=== PATIENT | female | born 1990 | race Caucasian/White ===

== ENCOUNTER 2018-11-21 18:29 | Emergency (ER) | payer SELFPAY ==
[~2018-11-21] VITALS: Ht 152.4 cm; Wt 59.1 kg
[2018-11-21 18:48] VITALS: BP 130/76
== END 2018-11-21 19:00 | disposition left against medical advice (07) ==
LOC: EMS 18:31
DX: F41.9 Anxiety disorder, unspecified (principal); Z53.21 Procedure and treatment not carried out due to patient leaving prior to being seen by health care provider

== ENCOUNTER 2020-03-08 14:56 | Emergency (ER) | payer MEDICAID ==
[~2020-03-08] VITALS: Ht 153 cm; Wt 64.0 kg
[2020-03-08 16:36] LABS: BASOPHILS % (AUTO) 0.6 % (0.0-2.0); EOSINOPHILS % (AUTO) 0.8 % (1.0-6.0); HEMATOCRIT 40.3 % (36-46); LYMPHOCYTES # (AUTO) 1.8 K/uL (1.0-4.8); MEAN CORPUSCULAR HGB CONC 34.7 G/dL (31.0-37.0); MEAN CORPUSCULAR VOLUME 89 fL (80-100); MONOCYTES # (AUTO) 0.5 K/uL (0.1-1.0); MONOCYTES % (AUTO) 7.4 % (2.0-9.0); NEUTROPHILS # (AUTO) 4.7 K/uL (1.8-7.7); NEUTROPHILS % (AUTO) 66.2 % (40.0-70.0); PLATELET COUNT (AUTO) 231 K/uL (150-450); RED BLOOD CELL COUNT(AUTO) 4.51 MIL/uL (4.00-5.20); RED CELL DISTRIBUTION WIDTH 13.8 % (11.5-14.5)
[2020-03-08 16:58] LABS: ANION GAP 7 mmol/L (8-16); CALCIUM, TOTAL 9.4 mg/dL (8.8-10.5); CARBON DIOXIDE 30 mmol/L (22-29); CHLORIDE 100 mmol/L (98-107); CREATININE 0.64 mg/dL (0.60-1.30); GLOMERULAR FILTR. RATE CALC > 60 mL/min (>60); GLUCOSE,RANDOM 98 mg/dL (70-110); POTASSIUM 3.8 mmol/L (3.5-5.1); SODIUM SERUM 137 mmol/L (136-145); UREA NITROGEN, BLOOD 7 mg/dL (7-18)
[2020-03-08 17:15] VITALS: BP 106/73
== END 2020-03-08 17:50 | disposition home or self-care (01) ==
LOC: EMS 15:53
DX: R07.89 Other chest pain (principal); R06.02 Shortness of breath; F41.9 Anxiety disorder, unspecified; E78.00 Pure hypercholesterolemia, unspecified
CPT/HCPCS: 93005; 36415-L1; 36415-TC; 71045-TC

== ENCOUNTER 2023-07-02 09:41 | Emergency (ER) | payer MEDICAID, OTHER ==
[~2023-07-02] VITALS: Ht 162.6 cm; Wt 63.6 kg
[2023-07-02 09:45] VITALS: TEMP 97.8
[2023-07-02] MEDS ORDERED: TraMADol HCL 50 MG TABLET PO ONE (10:30)
[2023-07-02 10:45] VITALS: BP 110/65; PULSE 76; RESP 12
== END 2023-07-02 14:32 | disposition home or self-care (01) ==
LOC: EMS 09:48
DX: S93.402A Sprain of unspecified ligament of left ankle, initial encounter (principal); F41.9 Anxiety disorder, unspecified; E78.00 Pure hypercholesterolemia, unspecified; W19.XXXA Unspecified fall, initial encounter; Y93.89 Activity, other specified; Y92.89 Other specified places as the place of occurrence of the external cause; Y99.8 Other external cause status
CPT/HCPCS: 99283

== ENCOUNTER 2023-12-18 03:26 | Inpatient (IN) | payer MEDICAID ==
[~2023-12-18] VITALS: Ht 152.4 cm; Wt 73.9 kg
[2023-12-18] MEDS ORDERED: HALOPERIDOL 5 MG TABLET PO PRN (04:45)
[2023-12-18 05:00] VITALS: BP 122/68; PULSE 74; RESP 18; TEMP 98.1; O2SAT 99
[2023-12-18] MEDS ORDERED: PETROLATUM,WHITE 28 GM JELLY TP PRN (13:45)
[2023-12-18] MEDS ORDERED: ALBUTEROL SULFATE HFA 90 MCG/PUFF 8 GM INHALER IH PRN (13:45)
[2023-12-18] MEDS ORDERED: DOCUSATE SODIUM 100 MG CAPSULE PO PRN (13:45)
[2023-12-18] MEDS ORDERED: LOPERAMIDE HCL 2 MG CAPSULE PO PRN (13:45)
[2023-12-18] MEDS ORDERED: CloNIDine HCL 0.1 MG TABLET PO PRN (13:45)
[2023-12-18] MEDS ORDERED: MAG HYDROX/ALUMINUM HYD/SIMETH ES 30 ML SUSPENSION UDCUP PO PRN (13:45)
[2023-12-18] MEDS ORDERED: IBUPROFEN 600 MG TABLET PO PRN (13:45)
[2023-12-18] MEDS ORDERED: BENZOCAINE/MENTHOL LOZENGE PO PRN (13:45)
[2023-12-18] MEDS ORDERED: OMEPRAZOLE 20 MG CAPSULE PO PRN (13:45)
[2023-12-18] MEDS ORDERED: BACITRACIN 28 GM OINTMENT TP PRN (13:45)
[2023-12-18] MEDS ORDERED: MAGNESIUM HYDROXIDE SUSPENSION 30 ML UDCUP PO PRN (13:45)
[2023-12-18] MEDS: ACETAMINOPHEN 325 MG TABLET PO PRN (20:33)
[2023-12-18 21:23] VITALS: BP 135/82; PULSE 77; RESP 18; TEMP 97.9; O2SAT 98
[2023-12-18] MEDS: ZOLPIDEM TARTRATE 10 MG TABLET PO PRN (22:52)
[2023-12-19 07:44] LABS: BASOPHILS % (AUTO) 0.7 % (0.0-2.0); EOSINOPHILS % (AUTO) 1.8 % (1.0-6.0); HEMATOCRIT 42.4 % (36-46); HEMOGLOBIN 13.8 g/dL (12.0-16.0); LYMPHOCYTES # (AUTO) 1.7 K/uL (1.0-4.8); LYMPHOCYTES % (AUTO) 29.5 % (22.0-44.0); MEAN CORPUSCULAR HEMOGLOBIN 30.3 pg (26.0-34.0); MEAN CORPUSCULAR HGB CONC 32.6 G/dL (31.0-37.0); MEAN CORPUSCULAR VOLUME 93 fL (80-100); MONOCYTES # (AUTO) 0.5 K/uL (0.1-1.0); MONOCYTES % (AUTO) 8.3 % (2.0-9.0); NEUTROPHILS # (AUTO) 3.5 K/uL (1.8-7.7); NEUTROPHILS % (AUTO) 59.7 % (40.0-70.0); PLATELET COUNT (AUTO) 241 K/uL (150-450); RED BLOOD CELL COUNT(AUTO) 4.57 MIL/uL (4.00-5.20); RED CELL DISTRIBUTION WIDTH 14.4 % (11.5-14.5); WHITE BLOOD COUNT (AUTO) 5.9 K/uL (4.5-11.0)
[2023-12-19 07:52] LABS: HEMOGLOBIN A1C 5.7 % (3.8-5.6)
[2023-12-19 08:13] LABS: ALANINE AMINOTRANSFERASE 13 U/L (12-78); ALBUMIN 3.4 g/dL (3.4-5.0); ALKALINE PHOSPHATASE 52 U/L (46-116); ANION GAP 6 mmol/L (8-16); ASPARTATE AMINOTRANSFERASE 13 U/L (15-37); BILIRUBIN,TOTAL 0.4 mg/dL (0.1-1.0); CALCIUM, TOTAL 8.5 mg/dL (8.8-10.5); CARBON DIOXIDE 32 mmol/L (22-29); CHLORIDE 103 mmol/L (98-107); CHOL/HDL RATIO 3.3 (3.9-5.7); CHOLESTEROL 196 mg/dL (131-200); CREATININE 0.57 mg/dL (0.60-1.30); GLOMERULAR FILTR. RATE CALC > 60 mL/min (>60); GLUCOSE,RANDOM 92 mg/dL (70-110); HCG,QUANTITATIVE < 1 mIU/mL (0-6); HDL CHOLESTEROL 60 mg/dL (40-60); LDL CHOL (CALC.) 116 mg/dL (0-130); POTASSIUM 4.1 mmol/L (3.5-5.1); SODIUM SERUM 141 mmol/L (136-145); T4 (THYROXINE) 8.5 mcg/dL (4.7-13.3); THYROID STIMULATING HORMONE 1.24 uIU/mL (0.36-3.74); TRIGLYCERIDES 101 mg/dL (15-150); UREA NITROGEN, BLOOD 10 mg/dL (7-18)
[2023-12-19 09:47] VITALS: BP 120/70; PULSE 80; RESP 18; TEMP 98.3; O2SAT 100
[2023-12-19 20:15] VITALS: BP 151/91; PULSE 77; TEMP 98.2; O2SAT 100
[2023-12-19] MEDS: LORazepam 2 MG TABLET PO PRN (23:42)
[2023-12-20] MEDS: ONDANSETRON HCL 4 MG TABLET PO PRN (04:50)
[2023-12-20] MEDS: DIVALPROEX SODIUM 500 MG DR TABLET PO SCH (08:19)
[2023-12-20 09:05] VITALS: BP 119/79; PULSE 91; RESP 17; TEMP 98.4; O2SAT 98
[2023-12-20 12:12] VITALS: RESP 17
[2023-12-20 13:12] VITALS: RESP 18
[2023-12-21 08:32] VITALS: BP 105/71; PULSE 68; RESP 17; TEMP 97.8; O2SAT 98
[2023-12-21 09:19] VITALS: RESP 17
[2023-12-21 10:19] VITALS: RESP 17
[2023-12-21 20:01] VITALS: BP 110/68; PULSE 62; RESP 18; TEMP 98
[2023-12-22 08:54] VITALS: BP 112/74; PULSE 74; RESP 17; TEMP 98.1; O2SAT 98
[2023-12-22] MEDS ORDERED: DIVA-112 PO (09:47)
[2023-12-22 12:28] VITALS: BP 132/85; PULSE 87; RESP 17; TEMP 98.3; O2SAT 98
== END 2023-12-22 13:30 | disposition home or self-care (01) | DRG 753 ==
LOC: B2S 04:44
PROVIDERS: ADMIT Psychiatry & Neurology Psychiatry; ATTEND Psychiatry & Neurology Psychiatry
DX: F31.9 Bipolar disorder, unspecified (principal); R45.851 Suicidal ideations; F41.9 Anxiety disorder, unspecified; G47.00 Insomnia, unspecified; K59.00 Constipation, unspecified
CPT/HCPCS: 80053; 80061; 80164; 83036; 84436; 84439; 84443; 84702; 85025; 86592; Q0162

== ENCOUNTER 2024-01-25 14:26 | Emergency (ER) | payer MEDICAID, OTHER ==
[~2024-01-25] VITALS: Ht 152.4 cm; Wt 72.7 kg
[~2024-01-25 14:26] MED LIST: DIVA-112 PO
[2024-01-25 14:31] VITALS: BP 115/66; PULSE 78; RESP 14; TEMP 98.2
[2024-01-25] MEDS ORDERED: ESCI-8 PO (14:32)
[2024-01-25] MEDS ORDERED: LITH300C3 PO (14:32)
[2024-01-25 14:47] LABS: COVID AG,FIA SOURCE NASAL SWAB
[2024-01-25 15:46] LABS: SARS-COV2 (COVID) ANTIGEN,FIA Negative (Negative)
[2024-01-25 15:54] LABS: INFLUENZA TYPE A NEGATIVE FOR TYPE A (NEGATIVE); INFLUENZA TYPE B NEGATIVE FOR TYPE B (NEGATIVE)
[2024-01-25 15:59] LABS: RAPID GROUP A STREP NEGATIVE (NEGATIVE)
[2024-01-25] MEDS ORDERED: AMOX250C4 PO (16:10)
== END 2024-01-25 16:41 | disposition home or self-care (01) ==
LOC: EMS 14:26
DX: J02.8 Acute pharyngitis due to other specified organisms (principal); R50.9 Fever, unspecified; R09.89 Other specified symptoms and signs involving the circulatory and respiratory systems; Z20.822 Contact with and (suspected) exposure to COVID-19
CPT/HCPCS: 87430; 87804; 99283

== ENCOUNTER 2024-03-12 00:04 | Emergency (ER) | payer OTHER ==
[~2024-03-12] VITALS: Ht 152.4 cm; Wt 70.9 kg
[~2024-03-12 00:04] MED LIST changes: +AMOX250C4 PO; +ESCI-8 PO; +LITH300C3 PO
[2024-03-12 00:06] VITALS: TEMP 97.9
[2024-03-12] MEDS: POLYETHYLENE GLYCOL 3350 17 GM PACKET PO ONE (01:43)
[2024-03-12] MEDS: SENNOSIDES 8.8 MG/5 ML SYRUP UDCUP PO ONE (01:44)
[2024-03-12 01:52] VITALS: BP 116/75; PULSE 81; RESP 18; O2SAT 97
[2024-03-12 01:59] LABS: APPEARANCE,URINE CLEAR (CLEAR); BILIRUBIN,URINE NEGATIVE (NEGATIVE); COLOR,URINE LIGHT YELLOW (YELLOW); GLUCOSE, URINE (UA) NEGATIVE (NEGATIVE); KETONES,URINE NEGATIVE (NEGATIVE); NITRATE,URINE NEGATIVE (NEGATIVE); OCCULT BLOOD,URINE NEGATIVE (NEGATIVE); UROBILINOGEN,URINE <=1.0 mg/dL (<=1.0)
[2024-03-12 02:06] LABS: PROTEIN,URINE NEGATIVE (NEGATIVE)
[2024-03-12 02:07] LABS: LEUKOCYTE ESTERASE ,URINE TRACE (NEGATIVE)
[2024-03-12 02:09] LABS: BACTERIA,URINE None Seen /HPF (None Seen); RBC,URINE None Seen /HPF (0-2); SQUAMOUS EPITHELIAL CELL,UR Few /LPF (None Seen); WBC,URINE 0-2 /HPF (0-5)
[2024-03-12] MEDS ORDERED: PHEN28OI9 TP (02:56)
== END 2024-03-12 03:01 | disposition home or self-care (01) ==
LOC: EMS 00:06
DX: K64.9 Unspecified hemorrhoids (principal); F41.9 Anxiety disorder, unspecified; F32.A Depression, unspecified; E78.00 Pure hypercholesterolemia, unspecified; K59.00 Constipation, unspecified
CPT/HCPCS: 74019; 81001; 84703; 99284

== ENCOUNTER 2024-03-22 23:19 | Emergency (ER) | payer OTHER ==
[~2024-03-22] VITALS: Ht 152.4 cm; Wt 72.7 kg
[~2024-03-22 23:19] MED LIST changes: +PHEN28OI9 TP
[2024-03-22 23:39] VITALS: BP 139/82; PULSE 84; RESP 18; TEMP 98; O2SAT 98
== END 2024-03-23 02:00 | disposition left against medical advice (07) ==
LOC: EMS 23:20
DX: K08.89 Other specified disorders of teeth and supporting structures (principal); Z53.21 Procedure and treatment not carried out due to patient leaving prior to being seen by health care provider